=== PATIENT | male | born 1985 | race African-American/Black ===

== ENCOUNTER 2016-09-08 14:02 | Inpatient (IN) ==
--- NOTE | 2016-09-08 15:37 | EKG Report ---
Stationary ECG Study [facility] ER Test Date: 09/08/2016 2:27:05 PM Pat Name: JUAN ALICIA Department: Room: Gender: Real Time Operator: Gisselle García : 1985 Requested by: Patrice Rivera Order Number: [id number] Reading MD: JOCELYN BRENNAN Intervals [place] Rate: 58 P: 51 [place]: 164 QRS: 70 QRSD: 98 T: 46 QT: 358 QTc: 354 Interpretive Statements SINUS BRADYCARDIA Electronically Signed On 09-08-16 22:46:36 ENTERPRISE ACCOUNT MANAGER by JOCELYN BRENNAN [email or web address]
--- NOTE | 2016-09-08 16:10 | Emergency Department Note ---
ILuis Alberto Meredith, am scribing for, and in the presence of, Patrice Hill MD 15:30. Sergio Hummel Phillip K, MD, personally performed the services described in this documentation, ascribed by Cinthia Sahu in my presence, and it is both accurate and complete . Arrival - Arrival ED Nursing Triage Note: c/o chest pain that started this am. was taken to [facility] this am and discharged. states that they said everything checked out Mode of Arrival: Ambulatory Limitations: No Limitations Source: Patient, Old Records Reviewed, RN Notes Reviewed - History of Present Illness Onset (ago): hour(s) <Patrice Hill - Last Filed: 09/08/16 16:10> <Zoran Hilton - Last Filed: 09/08/16 18:24> - Arrival Chief Complaint: Chest Pain Stated Complaint: chest pain - History of Present Illness HPI Narrative: Pt is a 31 y/o black male reporting to the ED with c/o chest pain, nausea, and vomiting which onset at 0400 this morning. He was seen at [facility] ER and they told him "everything checked out". Pt states the pain radiates into his back and he has abdominal pain but denies any shortness of breath. He had a similar episode 2 weeks ago after eating spicy food. Pt drank beer and had spicy food last night. (Cinthia Sahu) Pt is a 31 y/o black male reporting to the ED with c/o chest pain, nausea, and vomiting which onset at 0400 this morning. He was seen at [facility] ER and they told him "everything checked out". Pt states the pain radiates into his back and he has abdominal pain but denies any shortness of breath. He had a similar episode 2 weeks ago after eating spicy food. Pt drank beer and had spicy food last night. (Patrice Hill) Allergies/Adverse Reactions: Allergies Allergy/AdvReac Type Severity Reaction Status Date / Time No Known Allergies Allergy Verified 09/08/16 14:21 Home Medications: Home Medications Medication Instructions Recorded Confirmed Type No Known Home Medications [No 09/08/16 09/08/16 History Known Home Medications] Review of System - Review of System 12 point system: reviewed and no additional remarkable complaints except as stated - Review of System Respiratory: Present: as per HPI. Absent: respiratory distress Cardiovascular: Present: as per HPI, chest pain Gastrointestinal: Present: as per HPI, abdominal pain, nausea, vomiting Musculoskeletal: Present: as per HPI, back pain (radiating from chest) <Patrice Hill - Last Filed: 09/08/16 16:10> Medical,Surgical,& Family Hx - Social History Smoking Status: Never smoker Frequency of Alcohol Use: Occasionally Type of Drug Use: None <Patrice Hill - Last Filed: 09/08/16 16:10> Exam - General General appearance: alert, in no apparent distress - Head Head exam: Present: atraumatic, normocephalic - Eye Eye exam: Present: normal appearance, PERRL, EOMI - ENT ENT exam: Present: mucous membranes moist, normal external ear exam - Neck Neck exam: Present: full ROM, trachea midline. Absent: tenderness, meningismus , lymphadenopathy, thyromegaly - Chest Chest inspection: Present: symmetric chest wall rise. Absent: tenderness, rash - Respiratory Respiratory exam: Present: normal lung sounds bilaterally. Absent: respiratory distress - Cardiovascular Cardiovascular exam: Present: regular rate, normal rhythm, normal heart sounds. Absent: murmur, rubs, gallop - Abdominal Exam Abdominal exam: Present: soft, tenderness (right upper quadrant and mid- epigastric ), normal bowel sounds. Absent: distention, guarding, rebound, rigidity - Extremities Exam Extremities exam: Present: full ROM, normal capillary refill. Absent: tenderness, pedal edema, calf tenderness - Back Exam Back exam: Present: full ROM. Absent: tenderness - Neurological Exam Neurological exam: Present: alert, oriented X3, CN II-XII intact. Absent: motor sensory deficit - Psychiatric Psychiatric exam: Present: normal affect, normal mood - Skin Skin exam: Present: warm, dry, intact, normal color <Patrice Hill - Last Filed: 09/08/16 16:10> Vital Signs: Vital Signs Temperature 97.7 F 09/08/16 15:21 Pulse Rate 65 09/08/16 16:27 Respiratory Rate 15 09/08/16 16:27 Blood Pressure 119/49 09/08/16 16:27 O2 Sat by Pulse Oximetry 99 09/08/16 16:27 Results - Labs CBC & BMP: 09/08/16 16:15 09/08/16 16:15 Lab Results: I have reviewed the patients labs - Diagnostic Findings Procedure: Ultrasound: image reviewed by me (thickened gallbladder wall with her cholecystic fluid and probable stone embedded in the gallbladder neck.) <Zoran Hilton - Last Filed: 09/08/16 18:24> Disposition <Patrice Hill - Last Filed: 09/08/16 16:10> Case discussed with: patient, patient's family Time of Disposition: 18:24 <Zoran Hilton - Last Filed: 09/08/16 18:24> Clinical Impression: Acute cholecystitis Disposition: Still a Patient Condition: Stable
--- NOTE | 2016-09-08 16:16 | XRay Report ---
History: Chest pain Date: 09/08/2016 at 3:54 PM Study: Chest x-ray PA and lateral Comparison exam: No previous available The cardiomediastinal silhouette and pulmonary vasculature are unremarkable. The lungs and pleural spaces are clear. The osseous structures are unremarkable. Impression: No acute cardiopulmonary process PROCEDURE INTERPRETED AT [facility] DEPARTMENT OF RADIOLOGY Final Report Signed by: Dr. Apoorva Castillo
[2016-09-08 16:30] LABS: Basophils % 0.1 % (0.0-0.8); Hematocrit 42.7 VOL% (42.0-52.0); Hemoglobin 14.5 GM/DL (14.0-18.0); Immature Granulocytes % 0.3 %; Immature Granulocytes Absolute 0.05 #; Lymphocytes # 0.5 10*3/uL (1.4-4.0); Lymphocytes % 3.2 % (21.2-54.2); Mean Corpuscular Hemoglobin 31 PG (27-34); Mean Corpuscular Volume 90.9 FL (87-102); Mean Platelet Volume 11.1 FL (9.6-12.0); Monocytes # 0.8 10*3/uL (0.11-0.8); Monocytes % 4.8 % (1.7-12.7); Neutrophils # 15.4 10*3/uL (1.4-7.4); Neutrophils % 91.6 % (38.7-73.9); Platelet Count 261 T/CUMM (130-400); Red Cell Distribution Width 12.1 % (9.3-17.3); White Blood Count 16.8 T/CUMM (4-12)
[2016-09-08 16:49] LABS: Albumin 4.1 G/DL (3.4-5.0); Bilirubin,Total 1.1 MG/DL (0.2-1.0); Calcium 9.6 MG/DL (8.5-10.1); Osmolality,Calculated 283.1 MOS/KG (273-304); Potassium 4.4 MMOL/L (3.5-5.1); Total Protein 7.8 G/DL (6.4-8.3)
[2016-09-08 16:50] LABS: Lymphocytes 1 % (20-55); Platelet Estimate Adequate; Poikilocytosis Slight; Segmented Neutrophils 97 % (50-85); Tear Drop Cells Slight; Total Cells Counted 100
--- NOTE | 2016-09-08 18:21 | Ultrasound Report ---
Exam: US gallbladder Date: 09/08/2016 5:35 PM Comparison: None Indication: Right upper quadrant pain, biliary colic Technique: Multiple transabdominal real-time scans were obtained of the right upper quadrant. Color flow scans obtained. Ultrasound images captured is toward. Findings: Small echogenic non-shadowing finding in the fundus of the gallbladder. Inhomogeneous echogenicity noted in neck of the gallbladder. The wall of the gallbladder is thickened measured 7 mm with pericholecystic fluid and positive sonographic Golden's sign. CBD is normal in size measuring 4 mm. The liver is at the upper limits of normal in size with no definite masses. Right kidney measures 102 mm with no mass or hydronephrosis. The pancreas, aorta including aortic bifurcation, and IVC are obscured by bowel gas. Color-flow documented in the portal vein. Impression: Probable cholelithiasis. Significant gallbladder wall thickening with pericholecystic fluid and positive sonographic Golden's sign consistent with with acute cholecystitis. Biliary scan with ejection fraction may be helpful for further evaluation. PROCEDURE INTERPRETED AT [facility] DEPARTMENT OF RADIOLOGY Final Report Signed by: Dr. Radha Taylor
[2016-09-08] MEDS ORDERED: ONDANSETRON 4 MG/2 ML VIAL IV PRN (18:54)
[2016-09-08] MEDS ORDERED: HYDROmorphone 2 MG/1 ML VIAL IV PRN (18:54)
[2016-09-08] MEDS ORDERED: ACETAMINOPHEN 325 MG TABLET PO PRN (18:54)
--- NOTE | 2016-09-08 19:05 | General Surg History&Physical ---
Assessment and Plan - Time spent with patient Time spent with patient: Greater than 30 minutes (1) Acute cholecystitis Status: Acute Assessment and plan: Impression: Abdominal pain secondary to cholecystitis with cholelithiasis. Plan: IV antibiotics and surgery in the morning. Current Visit: Yes History of Present Illness Chief complaint: abdominal pain with nausea and vomiting History of present illness: Mr. Camargo is a 31 year old male -Uz[place] nondiabetic who comes emergency room from [place] because of abdominal pain primarily epigastric in nature with nausea and vomiting. Hip early had an attack for the first time about a week ago was seen in [place] and sent home. He returned with another episode of severe pain epigastric area with some nausea and vomiting. He cannot relate any food intolerance at this time. Ultrasound here suggested thickened gallbladder wall with a stone present in it at this time. Liver function studies are within normal limits. We'll plan to go ahead and admit him and line him up for gallbladder surgery tomorrow. Home Medications Medication Instructions Recorded Confirmed Type No Known Home Medications [No 09/08/16 09/08/16 History Known Home Medications] Allergies Allergy/AdvReac Type Severity Reaction Status Date / Time No Known Allergies Allergy Verified 09/08/16 14:21 Medical,Surgical,& Family Hx - Social History Smoking Status: Never smoker Frequency of Alcohol Use: Occasionally Type of Drug Use: None Marital Status: Lives With:: Spouse Functional capacity: independent ambulation Exam - Constitutional Vitals: Period Temp Pulse Resp BP Sys/Padilla Pulse Ox Last 24 Hr 97.7 F-97.7 F 64-89 12-18 95-147/45-115 97-100 General appearance: mild distress - Head Head exam: Present: normal inspection - ENT ENT exam: Present: normal exam - Neck Neck exam: Present: normal inspection - Respiratory Respiratory exam: Present: clear to auscultation bilaterally, rales - Cardiovascular Cardiovascular exam: Present: RRR - GI/Abdominal GI/Abdominal exam: Present: hypoactive bowel sounds, soft. Absent: distended, tenderness (mild in the right upper quadrant) - Extremities Exam Extremities exam: Present: normal inspection - Neurological Exam Neurological exam: Present: alert, oriented X3, CN II-XII intact - Skin Skin exam: Present: normal color, warm, dry 12 point system: reviewed and no additional remarkable complaints except as stated Quality Measures - VTE Contraindication to Pharmacological VTE Prophylaxis: High Risk of Bleeding Results - Labs CBC & BMP: 09/08/16 16:15 09/08/16 16:15 Lab Results: I have reviewed the past 24 hour labs - Diagnostic Findings Procedure: Ultrasound: image reviewed by me, report reviewed by me (gallbladder wall thickening positive Golden sign with stone)
[2016-09-08] MEDS: DEXTROSE 5% LACTATED RINGERS 1,000 ML IV SCH (20:57)
[2016-09-08] MEDS: metroNIDAZOLE INJ 500 MG in PREMIX 1 EACH IV SCH (21:08)
[2016-09-09] MEDS: metroNIDAZOLE INJ 500 MG in PREMIX 1 EACH IV SCH ×3 (05:00→20:46)
[2016-09-09] MEDS: DEXTROSE 5% LACTATED RINGERS 1,000 ML IV SCH ×4 (05:13→21:09)
[2016-09-09] MEDS ORDERED: DIAZEPAM 5 MG TABLET PO ONE ×2 (05:44→12:00)
[2016-09-09] MEDS ORDERED: FAMOTIDINE 20 MG TABLET PO ONE ×2 (05:44→12:00)
[2016-09-09 06:56] LABS: Basophils % 0.1 % (0.0-0.8); Eosinophils # 0.1 10*3/uL (0.0-0.87); Eosinophils % 0.3 % (0.00-10.9); Hematocrit 40.5 VOL% (42.0-52.0); Hemoglobin 13.8 GM/DL (14.0-18.0); Immature Granulocytes % 0.4 %; Immature Granulocytes Absolute 0.07 #; Lymphocytes # 1.3 10*3/uL (1.4-4.0); Lymphocytes % 8.1 % (21.2-54.2); Mean Corpuscular HGB Conc 34.1 GM/DL (32-36); Mean Corpuscular Hemoglobin 31 PG (27-34); Mean Platelet Volume 11.4 FL (9.6-12.0); Monocytes # 1.5 10*3/uL (0.11-0.8); Monocytes % 9.1 % (1.7-12.7); Neutrophils # 13.3 10*3/uL (1.4-7.4); Platelet Count 257 T/CUMM (130-400); Red Cell Distribution Width 12.4 % (9.3-17.3); White Blood Count 16.3 T/CUMM (4-12)
[2016-09-09 07:04] LABS: INR 1.1; PT Patient Result 11.3 SECS; Partial Thromboplastin Time 31.6 SECS (0-40)
[2016-09-09 07:18] LABS: Albumin 3.2 G/DL (3.4-5.0); Bilirubin,Total 1.8 MG/DL (0.2-1.0); Calcium 8.8 MG/DL (8.5-10.1); Osmolality,Calculated 286.7 MOS/KG (273-304); Potassium 3.7 MMOL/L (3.5-5.1); Total Protein 6.2 G/DL (6.4-8.3)
--- NOTE | 2016-09-09 08:13 | XRay Report ---
XR chest 1V portable Indication: Preop Comparison: Chest x-ray dated September 08, 2016 Technique: Single frontal view of the chest Findings: Cardiomediastinal silhouette is stable in configuration. No new focal consolidation, pleural effusion, or pneumothorax. Osseous and surrounding soft tissue structures appear grossly unchanged. IMPRESSION: No acute cardiopulmonary process demonstrated. PROCEDURE INTERPRETED AT [facility] DEPARTMENT OF RADIOLOGY Final Report Signed by: Dr Fox Pyle
[2016-09-09] MEDS: PANTOPRAZOLE 40 MG VIAL IV SCH (09:20)
[2016-09-09] MEDS ORDERED: BUPIVACAINE MPF 0.25% /EPI 30 ML VIAL ONE (12:23)
[2016-09-09] MEDS ORDERED: TISSUE ADHESIVE 1 EACH APPLICATOR TOP ONE (12:23)
[2016-09-09] MEDS ORDERED: PROPOFOL 200 MG/20 ML VIAL IV ONE (12:45)
[2016-09-09] MEDS ORDERED: LIDOCAINE 2% 5 ML VIAL ONE (12:45)
[2016-09-09] MEDS ORDERED: GLYCOPYRROLATE 0.4 MG/2 ML VIAL ONE (12:45)
[2016-09-09] MEDS ORDERED: NEOSTIGMINE 10 MG/10 ML VIAL ONE (12:45)
[2016-09-09] MEDS ORDERED: ONDANSETRON 4 MG/2 ML VIAL ONE (12:45)
[2016-09-09] MEDS ORDERED: ROCURONIUM 100 MG/10 ML VIAL IV ONE (12:45)
[2016-09-09] MEDS ORDERED: HEPARIN 5,000 UNIT/1 ML VIAL ONE (13:15)
[2016-09-09] MEDS ORDERED: MIDAZOLAM 2 MG/2 ML VIAL ONE (16:12)
[2016-09-09] MEDS ORDERED: fentaNYL 100 MCG/2 ML VIAL ONE (16:12)
--- NOTE | 2016-09-09 17:17 | Operative Note ---
Date of procedure: 09/09/16 Pre-op diagnosis: acute cholecystitis with cholelithiasis Post-op diagnosis: other (acute gangrenous cholecystitis with cholelithiasis.) Procedure: Operative note: Preoperative diagnosis: Acute cholecystitis cholelithiasis. Postoperative diagnosis: Acute gangrenous cholecystitis with cholelithiasis. Procedure: Laparoscopic cholecystectomy with attempted intraoperative cholangiogram Surgeon Dr. Moore Clinical Advisor Claritza Moncada [facility] Anesthesia Gen. endotracheal with local Brief history: 31-year-old male who comes in with a week long history of abdominal pain. Initially seen in the ER and sent home about a week ago who comes in because he continued to have discomfort in the epigastric area. Ultrasound was positive for stones and thickening of the gallbladder wall with pericholecystic fluid. He also was tender on palpation in this area and was running an elevated white count with but the liver function studies were normal. We putting inputting also IV antibiotics and lifted bring to surgery at this time to remove the gallbladder. Procedure: With patient in supine position prepped and draped in a sterile fashion Timeout and antibiotics completed we approached the abdomen where we infiltrated the trocar sites local anesthetic making an initial incision just above the umbilicus with a knife and carried it down through the skin subcutaneous tissue. He had a deep subcutaneous tissue were finally able to get to the fascia were made incision in the fascia. This allowed us to elevate the fascia and then we carefully dissection entered the peritoneal cavity in direct vision. At that point but 11 mm trocar in and feel the abdomen with 3 L of CO2. At that point we can look around with a looking pretty good shape liver was in pretty good shape but there was omentum stuck over the gallbladder were we could not clearly see it at this time. At that point we went ahead and placed in a 5 mm trocar at the anterior axillary and midclavicular line under direct vision an 11 mm epigastric port under direct vision. We then put the patient upright and tilted left side position. At that point we pull the omentum off the gallbladder finding a thickened gallbladder that we could not grasp at this time. Then unusual L shape onto the liver bed at this time. At that point we placed a needle in then aspirated the gallbladder allowing to collapse little bit making it a little easier to grab and elevate. We placed a grasper on the fundus and there we placed another one at the infundibulum. With careful dissection we identified a large lymph node and its lymphatic channel which we then clipped doubly and divided. This allowed us to carefully dissected down to identify the cystic duct scenic clearly going into the gallbladder at that point we then placed a clip on the proximal part of the cystic duct made an incision in the cystic duct and attempted several times to pass a Cholangiocath into the cystic duct. We never could get it to pass far enough to get a clip on it for an x-ray. Since his liver function studies were normal and we clearly had the cystic duct identified we elected not to continue to attempt to get the cholangiogram. At that point we then placed 3 clips across the distal part of this cystic duct finding that are regular clips were not long enough. Went up having to place a 12 mm trocar in the epigastric port so we get a large clip fisher lampara net in. This allowed us to get 4 clips across the distal part of the cystic duct being sure that it was completely across the duct. At that point where we divided the cystic duct. With careful dissection we identified the cystic artery place 3 clips across it proximally one distally and divided it. I then began to work take the gallbladder out by incising the peritoneal attachments anteriorly and posteriorly and using sharp and blunt dissection with electrocauterization to dissected gallbladder out of the liver bed and control bleeding. The upper part was difficult because this L-shaped Aleks we did get into the gallbladder with some spillage of bilious material in this area. We finally completed to get the gallbladder completely out. We then placed it in the Endo Catch bag and brought out to the umbilical port but we had to extend the incision to get it out. Once out we then went back in and washed and irrigated cleaning up onto the gallbladder bed and under the liver and on top of the liver to get as much of the fluid as we could get. Bleeding was under good control we still had touch couple areas for better control. Little concerned about the upper part related like we shale this gallbladder out of the gallbladder in this region so elected to go ahead and cauterize inside of that to be sure that I had the membrane completely destroyed. Once that was completed everything looked pretty clean I felt we needed leave a drain in him so we placed a #10 Tom-Ndiaye in underneath the liver brought it out through the lateral port. We then secured it with a 3-0 nylon. Once that was completed then we were able to remove the trochars. Went back to the umbilical port were closed it with 0 Monocryl suture interrupted we then washed out subcutaneous tissue and closed it with 3-0 Vicryl closed the skin with 4-0 Monocryl applying Dermabond to these areas. Patient was then taken to recovery Estimated blood loss 30 mL Sponge count correct 2 Drains one #10 Tom-Ndiaye Complications none Condition stable satisfactory Anesthesia: GETA, local (0.25% Marcaine with epinephrine mixed [id number] 1% Xylocaine plain) Surgeon / Physician: Zoran Moore Clinical Advisor: Claritza Moncada Estimated blood loss: other (30 mL) Specimens: other (gallbladder) Condition: stable Disposition: floor Results - Labs CBC & BMP: 09/09/16 06:15 09/09/16 06:15 Discharge Plan - Discharge Medications No Action No Known Home Medications [No Known Home Medications] - Follow Up or Referral - Forms/Instructions
[2016-09-09] MEDS: KETOROLAC 15 MG/1 ML VIAL IV SCH ×2 (18:32→22:45)
[2016-09-09 19:00] LABS: Hematocrit 37.5 VOL% (42.0-52.0); Hemoglobin 12.7 GM/DL (14.0-18.0)
[2016-09-10] MEDS: KETOROLAC 15 MG/1 ML VIAL IV SCH ×4 (03:23→20:17)
[2016-09-10] MEDS: DEXTROSE 5% LACTATED RINGERS 1,000 ML IV SCH (05:17)
[2016-09-10] MEDS: metroNIDAZOLE INJ 500 MG in PREMIX 1 EACH IV SCH ×3 (06:20→20:17)
[2016-09-10 07:20] LABS: Basophils % 0.2 % (0.0-0.8); Eosinophils # 0.1 10*3/uL (0.0-0.87); Eosinophils % 0.5 % (0.00-10.9); Hematocrit 38.3 VOL% (42.0-52.0); Hemoglobin 12.9 GM/DL (14.0-18.0); Immature Granulocytes % 0.5 %; Immature Granulocytes Absolute 0.06 #; Lymphocytes % 7.3 % (21.2-54.2); Mean Corpuscular HGB Conc 33.7 GM/DL (32-36); Mean Corpuscular Hemoglobin 31 PG (27-34); Mean Platelet Volume 11.2 FL (9.6-12.0); Monocytes # 1.2 10*3/uL (0.11-0.8); Monocytes % 8.9 % (1.7-12.7); Neutrophils # 10.8 10*3/uL (1.4-7.4); Neutrophils % 82.6 % (38.7-73.9); Platelet Count 224 T/CUMM (130-400); Red Blood Count 4.12 MC/CUMM (3.8-5.5); Red Cell Distribution Width 12.5 % (9.3-17.3); White Blood Count 13.1 T/CUMM (4-12)
[2016-09-10 07:48] LABS: Albumin 2.8 G/DL (3.4-5.0); Bilirubin,Total 1.4 MG/DL (0.2-1.0); Calcium 8.7 MG/DL (8.5-10.1); Osmolality,Calculated 288.6 MOS/KG (273-304); Potassium 3.8 MMOL/L (3.5-5.1); Total Protein 5.7 G/DL (6.4-8.3)
[2016-09-10] MEDS: PANTOPRAZOLE 40 MG VIAL IV SCH (09:42)
[2016-09-10] MEDS: ENOXAPARIN 40 MG/0.4 ML SYRINGE SUBCUT SCH (09:42)
--- NOTE | 2016-09-10 10:20 | General Surgery Progress Note ---
Assessment and Plan - Time spent with patient Time spent with patient: Less than 30 minutes (1) Acute cholecystitis Status: Acute Assessment and plan: 09/10/16 Stable post op lap papi. We'll d/c IV fluids and advance diet. If he does well, we'll remove MILTON and discharge home tomorrow. Current Visit: Yes Subjective Patient reports: Present: feels better, still having pain, tolerating liquids well, voiding w/o difficulty, bowel movement. Absent: vomiting, shortness of breath Exam - Constitutional Vitals: Period Temp Pulse Resp BP Sys/Padilla Pulse Ox Last 24 Hr 98.1 F-100.3 F 58-82 16-20 111-179/53-99 96-100 General appearance: no acute distress - Respiratory Respiratory exam: Present: clear to auscultation bilaterally - Cardiovascular Cardiovascular exam: Present: RRR - GI/Abdominal GI/Abdominal exam: Present: hypoactive bowel sounds, soft, other (Appropriately tender in post op incisions. MILTON drain in tact; serous/sanguinous drainage, about 10-15cc's.) Results - Labs CBC & BMP: 09/10/16 06:52 09/10/16 06:52 Lab Results: I have reviewed the past 24 hour labs (Post op labs stable.) Quality Measures - VTE Contraindication to Pharmacological VTE Prophylaxis: High Risk of Bleeding
--- NOTE | 2016-09-10 11:51 | Pathology Report from [facility] ---
ACCESSION # : [id number] PATIENT NAME : Juan Camargo ORDERING DR : MELIA YOUNG MD CLINICAL HX: Acute cholecystitis POST-OP DX: Same SPECIMEN INFO: Gallbladder GROSS DESCRIPTION: Received in formalin labeled "JUAN CAMARGO" is an open gallbladder measuring 11.5 x 4.5 cm. The serosa is smooth and erythematous. The gallbladder wall has an average thickness of 0.3 cm. The mucosal surface is hemorrhagic with no stones seen. Field Assembly Supervisor sections are submitted in one cassette. DIAGNOSIS FOR JUAN CAMARGO: GALLBLADDER, CHOLECYSTECTOMY: Acute necrotizing cholecystitis. SERVICE DATE: 09/10/2016 REPORT DATE: 09/10/2016 PATHOLOGIST: Constantin Hayward M.D. [facility] CENTERRigoberto
[2016-09-11] MEDS: KETOROLAC 15 MG/1 ML VIAL IV SCH ×2 (02:34→08:55)
[2016-09-11] MEDS: metroNIDAZOLE INJ 500 MG in PREMIX 1 EACH IV SCH ×2 (05:06→13:17)
[2016-09-11] MEDS: PANTOPRAZOLE 40 MG VIAL IV SCH (10:58)
[2016-09-11] MEDS: ENOXAPARIN 40 MG/0.4 ML SYRINGE SUBCUT SCH (11:04)
[2016-09-11 11:30] VITALS: BP 134/70
--- NOTE | 2016-09-11 12:55 | Discharge Summary ---
Hospital Course - Hospital Course Hospital Course: Discharge summary-09/11/16 Diagnosis: Acute gangrenous cholecystitis with cholelithiasis Procedure: Laparoscopic cholecystectomy with intraoperative cholangiogram Brief summary-This 31 y/o male patient presented to the ER after onset of epigastric abdominal pain at 0400 on 09/07/16, following eating 'spicy food and drinking beer.' He at first was seen at [facility], where he was told ' everything checked out,' and 'his heart was okay.' A previous episode 2 weeks ago had followed a meal of spicy foods, and he noted the pain was similar in character, but at this episode His pain persisted throughout the day. When it failed to subside he presented to the ER here, where ultrasound of the abdomen showed a thickened gallbladder, pericholecystic fluid, and a stone in the gallbladder neck. He was admitted and Dr Moore was consulted. IV fluids were begun, and pain medications relieved his pain somewhat. After the remainder of his workup was essentially normal, Dr Moore discussed the need for proceeding with laparoscopic cholecystectomy. He was anxious to proceed. On 09/08/16, he was taken to the OR, where a thickened, indurated, inflamed gallbladder was encountered. As we dissected the gallbladder free, gangrenous changes were noted at the gallbladder bed. Intraoperative cholangiogram was attempted but not able to be performed, owing to the degree of inflammation present and inability to cannulate the duct. With the degree of inflammation, we elected to leave a Tom-Ndiaye drain in place. Postoperatively, he was quite tender but did well, with stable labs and Vital signs. He tolerated slow advancement of his diet without nausea or vomiting. Bowels began moving on the first post op day. His pain was moderate but handled with his pain medicines. He was able to ambulate throughout the room on the morning of the first post op day, and in the halls that evening. MILTON output has been clear, serous in nature and no bilious or purulent drainage has been encountered. Today, he is tolerating his diet well, is comfortable and ambulatory, and wants to go home. He is voiding without pain and has good bowel sounds. We have pulled the drain and he is feeling well. We will discharge home on Luna for pain, and follow up in the office in 10-14 days. - Time spent with patient Time with patient DS: Greater than 30 minutes Diagnosis - Discharge Diagnosis (1) Acute cholecystitis Status: Acute Specialty Discharge - Follow Up or Referrals Follow up with: Zoran Moore MD [Physician] - (See Dr Moore or Claritza in 10-14 days) Discharge Plan - Discharge Data Disposition: Disch To Home/Self Care Condition at Discharge: Stable Discharge Diet: advance to your usual diet Activity: resume usual activities as tolerated, no lifting (over 25 lbs) Hygiene: may shower Weight Bearing at Discharge: full weight bearing Driving: not for (1 week) - Discharge Medications New HYDROcodone/ACETAMIN 7.5-325 [Luna 7.5-325] 1 tablet PO Q6HR #20 tablet - Follow Up or Referral Follow Up: Zoran Moore MD [Physician] - - Forms/Instructions Instructions: Laparoscopic Cholecystectomy (DC) Additional Discharge Instructions: Work excuses as needed Exam - Constitutional Vitals: Period Temp Pulse Resp BP Sys/Padilla Pulse Ox Last 24 Hr 97.9 F-98.7 F 55-78 17-19 134-162/70-89 93-99 General appearance: normal weight, no acute distress - Head Head exam: Present: normal inspection - Respiratory Respiratory exam: Present: clear to auscultation bilaterally - Cardiovascular Cardiovascular exam: Present: regular rate and rhythm - GI/Abdominal GI/Abdominal exam: Present: normal bowel sounds, soft, other (MILTON site is clean; incisions clean and dry. ). Absent: guarding - Extremities Exam Extremities exam: Present: normal inspection DS: Provider Date of admission: 09/08/16 18:54 Primary care physician: . No PCP Attending physician on admission: Zoran Moore MD Consults: 09/08/16 19:00 Consult to Anesthesiology [CONS] Routine Consulting Provider: Reason for Anesthesiology: Pre-op Clearance 09/08/16 21:01 Consult to Pastoral Services [CONS] Routine Comment: Pastoral Screen: Request Plant Accountant Visit Pastoral Screen Source of Request: Family 09/09/16 15:09 Consult to Pharmacy [CONS] Routine Reason for Pharmacy Consult: Adjust Meds Renal Funct Discharging clinician: Claritza Moncada CNP, R
== END 2016-09-11 14:30 | disposition home or self-care (01) | DRG 419 ==
LOC: N.ED 14:02 → N.EDINP 18:54 → N.3E 19:19
PROVIDERS: ADMIT Specialist; ATTEND Specialist
PROC: LAPCHOL (2016-09-09 09:20)